=== PATIENT | male | born 1985 | race Caucasian/White ===

== ENCOUNTER 2024-02-28 00:37 | Emergency (ER) | payer OTHER ==
[~2024-02-28] VITALS: Ht 170.2 cm; Wt 84.9 kg
[2024-02-28] MEDS: KETOROLAC 60MG 2ML VIAL IM ONE (02:01)
[2024-02-28 02:25] VITALS: BP 118/77; TEMP 98.5; O2SAT 100
== END 2024-02-28 02:27 | disposition home or self-care (01) ==
LOC: M ED 00:37
DX: J02.9 Acute pharyngitis, unspecified (principal); B34.9 Viral infection, unspecified; F10.10 Alcohol abuse, uncomplicated
CPT/HCPCS: 87486; 87581; 87633; 87798; 87880; 96372; 99283; J1885